=== PATIENT | female | born 1995 | race Caucasian/White ===

== ENCOUNTER 2019-07-23 21:39 | Emergency (ER) | payer OTHER ==
[~2019-07-23] VITALS: Ht 165.1 cm; Wt 56.0 kg
--- NOTE | 2019-07-23 23:12 | NUR ---
PT C/O SOB, DIFFICULTY CATCHING HER BREATH SINCE LAST NIGHT. ADHD MEDS CHANGED THIS PAST WEDNESDAY, THE MEDS ARE ABOUT THE SAME, BUT DIFFERENT DOSAGE. HX ADHD, ANXIETY. CONNECTED TO ALL MONITORING. CALL LIGHT IN REACH. PROVIDER AT BEDSIDE AWAITING ORDERS AT THIS TIME.
--- NOTE | 2019-07-23 23:20 | NUR ---
IV START. LABS DRAWN AND COLLECTED BY LAB.
[2019-07-23] MEDS ORDERED: ASPIRIN 81 MG TABLET CHEW ONE (23:22)
[2019-07-23] MEDS ORDERED: SODIUM CHLORIDE FLUSH 10ML SYR IVF ONE (23:30)
[2019-07-23] MEDS ORDERED: ASPIRIN 81 MG TABLET CHEW PO ONE (23:30)
[2019-07-23 23:34] LABS: BASOPHILS # (AUTO) 0.02 x10^3/uL (0-0.1); BASOPHILS % (AUTO) 0 % (0-1); EOSINOPHILS # (AUTO) 0.11 x10^3/uL (0-0.4); EOSINOPHILS % (AUTO) 1 % (1-7); LYMPHOCYTES # (AUTO) 3.16 x10^3/uL (1-3.4); LYMPHOCYTES % (AUTO) 28 % (22-44); MD NO; MEAN CORPUSCULAR HEMOGLOBIN 31.8 pg (27.0-34.8); MEAN CORPUSCULAR VOLUME 93.3 fL (80-100); MEAN PLATELET VOLUME 7.7 fL (7.4-10.4); MONOCYTES # (AUTO) 0.76 x10^3/uL (0.2-0.8); MONOCYTES % (AUTO) 7 % (2-9); NEUTROPHILS # (AUTO) 7.12 x10^3/uL (1.8-6.8); NEUTROPHILS % (AUTO) 64 % (42-75); PLATELET COUNT 281 x10^3/uL (130-400); RED BLOOD COUNT 4.71 x10^6/uL (3.82-5.3); RED CELL DISTRIBUTION WIDTH 13.1 % (9.6-15.2)
[2019-07-23 23:37] LABS: CREATININE 0.82 mg/dL (0.55-1.02)
[2019-07-23 23:41] LABS: ALKALINE PHOSPHATASE 45 U/L (45-117); BILIRUBIN,TOTAL 0.3 mg/dL (0.2-1.0); CHLORIDE 110 mmol/L (98-107); TOTAL PROTEIN 7.7 g/dL (6.4-8.2); TROPONIN I < 0.015 ng/mL (0.000-0.045)
--- NOTE | 2019-07-23 23:50 | NUR ---
PT RESTING COMFORTABLY ON [employer] WATCHING TV.
--- NOTE | 2019-07-23 23:58 | NUR ---
report from kimberly assumed care of pt at this time
[2019-07-24 00:06] LABS: ALANINE AMINOTRANSFERASE 23 U/L (12-78); ALBUMIN 4.2 g/dL (3.4-5.0); ANION GAP 10 mmol/L (5-15); CALCIUM 8.8 mg/dL (8.5-10.1)
[2019-07-24 01:10] VITALS: BP 115/73
== END 2019-07-24 01:11 | disposition home or self-care (01) ==
LOC: ED 07-24 01:05
DX: F41.1 Generalized anxiety disorder (principal); R07.9 Chest pain, unspecified; T43.625A Adverse effect of amphetamines, initial encounter; Y92.9 Unspecified place or not applicable
CPT/HCPCS: 36415; 71046; 80053; 84484; 85025; 93005; 99284